=== PATIENT | male | born 1935 | race Caucasian/White ===

== ENCOUNTER → 2016-02-25 | Day surgery (SDC) | payer MEDICARE ==
[~2016-02-25] MED LIST: BACITRACIN TOP OINT 15 GM TUBE ONE; LACTATED RINGER'S 1000 ML INJ 1,000 ML ONE; MINERAL OIL 10 ML VIAL ONE; ONDANSETRON HCL 4 MG/2 ML VIAL IV PUSH ONE; PROPOFOL 200 MG/20 ML AMP IV ONE; ceFAZolin 2 GM PREMIX 50 ML ONE
--- NOTE | 2016-02-25 16:13 | TN ---
cc: INÉS WILLINGHAM DATE OF SURGERY: 02/25/2016 PREOPERATIVE DIAGNOSIS Thin melanoma posterior scalp. POSTOPERATIVE DIAGNOSIS Thin melanoma posterior scalp. PROCEDURE: 1. Wide excision of thin melanoma posterior scalp. 2. Split-thickness skin graft with left thigh donor site, 4 cm x 4 cm scalp wound. SURGEON: Dr. Willingham. MOLECULAR TECHNOLOGIST: Staff. ANESTHESIA General and local anesthetic FINDINGS No pigmentation on a resectable lesion. BLOOD LOSS Less than 10 cc. COMPLICATIONS None INDICATIONS FOR PROCEDURE The patient is a 80-year-old male with a history of sun exposure and sun damage skin to his scalp. 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 The patient was referred to surgery for wide excision due to the location on the scalp. The risks, benefits and alternatives to wide excision and split-thickness skin graft were explained to the patient in detail prior to the procedure. The patient agreed to undergo the procedure. After informed consent was obtained the patient was taken to the operating room, placed in supine position. The patient was placed under general anesthesia. The patient's left eye and posterior scalp were shaved, prepped and draped in sterile fashion. Time-out was performed. Local anesthetic of 0.25% Marcaine with epinephrine was used at the planned skin graft donor site as well as at the planned resection site later in the procedure. A 0.19 inch thickness skin graft donor graft was taken from the left thigh approximately 2" x 2", with the dermatome without difficulty. We used epinephrine gauze over this site. The graft was kept with moistened saline. We then performed a wide excision. We marked 1 cm 360 degrees around the melanoma biopsy site. We excised this with a 15 blade scalpel. We used Bovie electrocautery for hemostasis and to take the scalp skin off of the aponeurosis. We then marked this with a stitch at 12 o'clock which was the anterior portion and passed this off for permanent processing. We then were able to take our skin graft which we then performed a 1.5 mesher graft pie-crusting of the skin graft. We easily covered the wound and cut a small amount of skin off the edges to make this fit for appropriate size and shape of the wound. This was then sewn in place with interrupted as well as running 4-0 chromic sutures. The skin graft was under no tension and completely froze the wound. It felt like we had a good technical result. We then placed bacitracin, Xeroform, sterile sponge, followed by Xeroform and shelby on the sponge to hold the very small amount of pressure over the graft to oppose it to the wound and prevent displacement. We then placed gauze in the mesh stocking cap. Bacitracin, Xeroform and Tegaderm were placed over the donor site. The patient was discontinued from anesthesia taken to the PACU in stable condition. The patient tolerated the procedure well. No apparent complications. All counts were correct. I was present and scrubbed for the entire procedure. MD PK Duque/MOMO /3:33 PM /4:00 PM
== END | disposition home or self-care (01) ==
LOC: ESDC 12:00
PROVIDERS: ATTEND Surgery
DX: C43.4 Malignant melanoma of scalp and neck (principal)
CPT/HCPCS: 00300; 11622; 15120; 88305; J0690; J2405; J3010; J7120